=== PATIENT | female | born 1995 | race Caucasian/White ===

== ENCOUNTER 2023-04-15 18:36 | Emergency (ER) | payer SELFPAY ==
[~2023-04-15] VITALS: Ht 175.3 cm; Wt 68.0 kg
[2023-04-15 20:21] VITALS: BP 128/109
== END 2023-04-16 20:20 | disposition home or self-care (01) ==
LOC: ER 18:36
DX: S83.91XA Sprain of unspecified site of right knee, initial encounter (principal); Z88.2 Allergy status to sulfonamides; X50.1XXA Overexertion from prolonged static or awkward postures, initial encounter
CPT/HCPCS: 73562-RT; 99283-25